=== PATIENT | female | born 1970 | race Caucasian/White ===

== ENCOUNTER 2020-02-27 11:03 | Emergency (ER) | payer BC ==
[~2020-02-27] VITALS: Ht 162.6 cm; Wt 50.0 kg
[2020-02-27] MEDS ORDERED: MELOXICAM15 MG PO (11:39)
[2020-02-27] MEDS ORDERED: IRON325 M1 PO (11:39)
[2020-02-27] MEDS ORDERED: GABAPENTIN100 MG PO (11:39)
[2020-02-27 12:23] LABS: HEMATOCRIT 40.2 % (37.0-47.0); HEMOGLOBIN 13.1 g/dl (12.0-16.0); IMMATURE GRANULOCYTES 0.3 % (0.0-5.0); MEAN CELL VOLUME 93.9 fL CALC (80.0-100.0); MEAN CORPUSCULAR HGB 30.6 pG CALC (26.0-32.0); MEAN CORPUSCULAR HGB CONC 32.6 g/dL CAL (32.0-36.0); NEUT# 2.39 thou/uL (2.00-7.15); RED BLOOD COUNT 4.28 mill/uL (4.20-5.60); RED CELL DISTRI WIDTH 12.6 % (11.5-15.5)
[2020-02-27 12:45] LABS: ALBUMIN 4.3 g/dL (3.2-5.0); ALKALINE PHOSPHATASE 71 u/l (38-126); ANION GAP 14 (6-22 (CALC)); BILIRUBIN, TOTAL 0.9 mg/dL (0.0-1.4); BUN 10 mg/dL (7-17); BUN/CREATININE RATIO 16 (12-20 (CALC)); C-REACTIVE PROTEIN 3.6 mg/dL (0-0.9); CARBON DIOXIDE 22 mmol/l (22-30); CHLORIDE 103 mmol/l (95-108); CREATININE 0.6 mg/dL (0.5-1.0); GFR > 60 ML/MIN (>=60 (CALC)); GFR FOR AFR.AMER. > 60 ML/MIN (>=60 (CALC)); POTASSIUM 3.6 mmol/l (3.5-5.1); SODIUM 135 mmol/l (137-146); TOTAL PROTEIN 7.9 g/dL (6.3-8.2)
[2020-02-27 12:51] LABS: SGOT/AST 46 u/l (14-36)
[2020-02-27 12:53] LABS: D-DIMER 0.62 mg/L (0.19-0.60)
[2020-02-27 13:10] LABS: ACT PARTIAL THROMBO TIME 29.5 SECONDS (20.0-32.5); PROTHROMBIN TIME 9.7 SECONDS (9.0-12.5)
[2020-02-27 13:55] LABS: URINE BILIRUBIN - DIPSTICK NEGATIVE (NEGATIVE); URINE BLOOD DIPSTICK SMALL (NEGATIVE); URINE COLOR YELLOW; URINE GLUCOSE - DIPSTICK NEGATIVE (NEGATIVE); URINE KETONE TRACE mg/dL (NEGATIVE); URINE LEUK ESTERASE NEGATIVE (NEGATIVE); URINE NITRITE - DIPSTICK NEGATIVE (Negative); URINE PROTEIN - DIPSTICK NEGATIVE (NEG-TRACE); URINE SPECIFIC GRAVITY <=1.005; URINE UROBILINOGEN - DIPSTICK 0.2 E.U./dL (0.2)
[2020-02-27 14:34] LABS: URINE SQUAMOUS EPITHELIAL CELL FEW EPI/hpf (0-FEW)
[2020-02-27] MEDS ORDERED: DECADRON4 MG PO (16:50)
[2020-02-27] MEDS ORDERED: ZITHROMAX250 MG PO (16:50)
[2020-02-27] MEDS ORDERED: VENTOLIN HFA IN (16:50)
[2020-02-27] MEDS ORDERED: TUSSIN COU15 MG/5 ML PO (16:50)
[2020-02-27 17:15] VITALS: BP 134/86
== END 2020-02-27 17:29 | disposition home or self-care (01) | DRG 177 ==
LOC: ED 11:03
PROVIDERS: Student in an Organized Health Care Education/Training Program
DX: U07.1 COVID-19 (principal); J12.89 Other viral pneumonia; A69.20 Lyme disease, unspecified; Z79.899 Other long term (current) drug therapy
CPT/HCPCS: Q9967